=== PATIENT | male | born 1945 | race Caucasian/White ===

== ENCOUNTER → 2024-01-15 12:52 | Outpatient (REF) | payer OTHER, SELFPAY | LOC: RCS 12:52 | PROVIDERS: ATTENDING PHYSICIAN Internal Medicine; FAMILY PHYSICIAN Family Medicine | DX: I50.32 Chronic diastolic (congestive) heart failure (principal); I10 Essential (primary) hypertension; I77.810 Thoracic aortic ectasia; I45.2 Bifascicular block | CPT/HCPCS: 93306 ==